=== PATIENT | male | born 1990 | race Two or more races ===

== ENCOUNTER 2021-12-04 07:50 | Day surgery (SDC) | payer OTHER ==
[2021-12-04] MEDS ORDERED: ULTRAM50 MG PO (10:41)
[2021-12-04] MEDS ORDERED: TYLENOL ARTHRI650 MG PO (10:41)
[2021-12-04] MEDS ORDERED: MIRALAX17 GM PO (10:41)
[2021-12-04] MEDS ORDERED: NEURONTIN300 MG PO (10:41)
== END 2021-12-04 14:40 | disposition home or self-care (01) ==
LOC: CIR.AMB 07:50
PROVIDERS: ATTEND Surgery
DX: K40.90 Unilateral inguinal hernia, without obstruction or gangrene, not specified as recurrent (principal); Z20.822 Contact with and (suspected) exposure to COVID-19; E78.5 Hyperlipidemia, unspecified; Z87.891 Personal history of nicotine dependence; Z71.6 Tobacco abuse counseling